=== PATIENT | female | born 1950 | race Caucasian/White ===

== ENCOUNTER → 2019-04-28 | Outpatient (CLI) | payer OTHER | LOC: CAT 08:08 | DX: Z13.6 Encounter for screening for cardiovascular disorders (principal); I25.10 Atherosclerotic heart disease of native coronary artery without angina pectoris; E78.00 Pure hypercholesterolemia, unspecified ==

== ENCOUNTER → 2019-05-25 | Outpatient (CLI) | payer OTHER | LOC: SJCVC 12:45 | DX: I10 Essential (primary) hypertension (principal); R93.1 Abnormal findings on diagnostic imaging of heart and coronary circulation; E78.5 Hyperlipidemia, unspecified; I65.23 Occlusion and stenosis of bilateral carotid arteries; Z96.659 Presence of unspecified artificial knee joint; Z79.899 Other long term (current) drug therapy; Z82.49 Family history of ischemic heart disease and other diseases of the circulatory system ==

== ENCOUNTER → 2019-06-14 | Outpatient (CLI) | payer OTHER | LOC: SJCVCIMAG 11:01 | DX: I65.23 Occlusion and stenosis of bilateral carotid arteries (principal); I08.3 Combined rheumatic disorders of mitral, aortic and tricuspid valves; R00.0 Tachycardia, unspecified; E78.5 Hyperlipidemia, unspecified; I10 Essential (primary) hypertension; Z82.49 Family history of ischemic heart disease and other diseases of the circulatory system; Z79.899 Other long term (current) drug therapy ==

== ENCOUNTER → 2019-11-29 | Outpatient (CLI) | payer OTHER | LOC: SJCVC 11:57 | PROVIDERS: ATTEND Internal Medicine | DX: I10 Essential (primary) hypertension (principal); R93.1 Abnormal findings on diagnostic imaging of heart and coronary circulation; E78.5 Hyperlipidemia, unspecified; I65.23 Occlusion and stenosis of bilateral carotid arteries; Z82.49 Family history of ischemic heart disease and other diseases of the circulatory system; Z79.82 Long term (current) use of aspirin; Z79.899 Other long term (current) drug therapy ==

== ENCOUNTER → 2020-05-31 | Outpatient (CLI) | payer OTHER | LOC: SJCVCIMAG 09:42 | PROVIDERS: ATTEND Internal Medicine | DX: I65.23 Occlusion and stenosis of bilateral carotid arteries (principal); R93.1 Abnormal findings on diagnostic imaging of heart and coronary circulation; E78.5 Hyperlipidemia, unspecified; I10 Essential (primary) hypertension; Z82.49 Family history of ischemic heart disease and other diseases of the circulatory system; Z88.2 Allergy status to sulfonamides; Z88.1 Allergy status to other antibiotic agents; Z79.82 Long term (current) use of aspirin; Z79.899 Other long term (current) drug therapy; Z72.89 Other problems related to lifestyle ==

== ENCOUNTER → 2020-10-25 | Outpatient (CLI) | payer OTHER | LOC: CAT 09:35 | PROVIDERS: ATTEND Family Medicine | DX: K57.30 Diverticulosis of large intestine without perforation or abscess without bleeding (principal); M47.816 Spondylosis without myelopathy or radiculopathy, lumbar region; N30.00 Acute cystitis without hematuria ==

== ENCOUNTER → 2020-11-28 | Outpatient (CLI) | payer OTHER | LOC: SJCVC 09:50 | PROVIDERS: ATTEND Internal Medicine | DX: R93.1 Abnormal findings on diagnostic imaging of heart and coronary circulation (principal); E78.5 Hyperlipidemia, unspecified; I10 Essential (primary) hypertension; I65.23 Occlusion and stenosis of bilateral carotid arteries; Z88.2 Allergy status to sulfonamides; Z88.8 Allergy status to other drugs, medicaments and biological substances; Z79.82 Long term (current) use of aspirin; Z79.899 Other long term (current) drug therapy; Z82.49 Family history of ischemic heart disease and other diseases of the circulatory system ==

== ENCOUNTER 2021-02-26 09:38 | Emergency (ER) | payer OTHER ==
[~2021-02-26] VITALS: Ht 162.6 cm; Wt 132.4 kg
[2021-02-26 10:39] LABS: ABSOLUTE NEUTROPHILS 7.7 thou/uL (1.4-8.2); EOSINOPHILS 3.3 % (0.0-3.0); HEMATOCRIT 36.1 % (37.0-47.0); HEMOGLOBIN 11.7 gm/dL (12.0-15.0); LYMPHOCYTES 9.1 % (24.0-44.0); MCH 27.4 pg (26.0-34.0); MCHC 32.6 g/dL (28.0-37.0); MCV 84.1 fL (80.0-100.0); MONOCYTES 8.2 % (1.0-8.0); PLATELET COUNT 496 thou/uL (150-400); POLYS 78.4 % (36.0-66.0); RBC 4.29 mil/uL (4.20-5.00); RDW 14.1 % (10.5-14.5); WBC 9.8 thou/uL (4.0-11.0)
[2021-02-26 10:50] LABS: CALCIUM 8.6 mg/dL (8.5-10.1); CREATININE 0.9 mg/dL (0.6-1.0)
[2021-02-26 10:57] LABS: ALBUMIN 2.8 g/dL (3.4-5.0); DIRECT BILIRUBIN 0.1 mg/dL (<0.1-0.2); TOTAL BILIRUBIN 0.5 mg/dL (0.2-1.0); TOTAL PROTEIN 6.8 g/dL (6.4-8.2)
[2021-02-26] MEDS ORDERED: DOXYCYCLINE 10100 MG PO (11:12)
[2021-02-26 11:15] VITALS: BP 125/72
== END 2021-02-26 11:15 | disposition home or self-care (01) ==
LOC: ER 09:38
PROVIDERS: Student in an Organized Health Care Education/Training Program
DX: R06.02 Shortness of breath (principal); Z20.822 Contact with and (suspected) exposure to COVID-19; Z88.2 Allergy status to sulfonamides

== ENCOUNTER 2021-03-03 14:37 | Inpatient (IN) | payer OTHER ==
[~2021-03-03] VITALS: Ht 162.6 cm; Wt 134.3 kg
[~2021-03-03 14:37] MED LIST: DOXYCYCLINE 10100 MG PO
[2021-03-03 14:38] VITALS: BP 160/74
[2021-03-03] MEDS ORDERED: OMEPRAZOLE 20 M20 M1 PO (14:51)
[2021-03-03] MEDS ORDERED: HYDROCHLOROTHIA25 M1 PO (14:51)
[2021-03-03] MEDS ORDERED: AMLODIPINE BESY10 MG PO (14:51)
[2021-03-03] MEDS ORDERED: METOPROLOL SUC200 MG PO (14:51)
[2021-03-03] MEDS ORDERED: OLMESARTAN MEDO40 MG PO (14:52)
[2021-03-03] MEDS ORDERED: POTASSIUM CHLO20 ME1 PO (14:52)
[2021-03-03] MEDS ORDERED: ROSUVASTATIN CA40 MG PO (14:52)
[2021-03-03 15:03] LABS: ABSOLUTE NEUTROPHILS 8.4 thou/uL (1.4-8.2); BASOPHILS 1.1 % (0.0-2.0); EOSINOPHILS 2.6 % (0.0-3.0); HEMATOCRIT 36.2 % (37.0-47.0); HEMOGLOBIN 11.8 gm/dL (12.0-15.0); LYMPHOCYTES 9.1 % (24.0-44.0); MCH 26.9 pg (26.0-34.0); MCHC 32.6 g/dL (28.0-37.0); MCV 82.4 fL (80.0-100.0); MONOCYTES 8.1 % (1.0-8.0); PLATELET COUNT 569 thou/uL (150-400); POLYS 79.1 % (36.0-66.0); RBC 4.39 mil/uL (4.20-5.00); RDW 13.8 % (10.5-14.5); WBC 10.6 thou/uL (4.0-11.0)
[2021-03-03 15:08] LABS: CALCIUM 8.4 mg/dL (8.5-10.1); CREATININE 0.9 mg/dL (0.6-1.0); POTASSIUM 3.4 mmol/L (3.5-5.1)
[2021-03-03 15:18] LABS: ALBUMIN 2.8 g/dL (3.4-5.0); TOTAL BILIRUBIN 0.4 mg/dL (0.2-1.0); TOTAL PROTEIN 6.9 g/dL (6.4-8.2)
[2021-03-03 16:20] LABS: URINE BILIRUBIN 1+ (Negative); URINE BLOOD TRACE (Negative); URINE CLARITY CLEAR; URINE COLOR YELLOW; URINE GLUCOSE-RANDOM* NEGATIVE (Negative); URINE KETONES NEGATIVE (Negative); URINE LEUKOCYTES-REFLEX TRACE (Negative); URINE NITRITE-REFLEX NEGATIVE (Negative); URINE PROTEIN (DIPSTICK) NEGATIVE (Negative); URINE SPECIFIC GRAVITY >= 1.030 (1.005-1.035)
[2021-03-03 16:22] LABS: ICTOTEST (BILI CONFIRMATORY) Negative (Negative)
[2021-03-03 18:43] LABS: INR 1.01
[2021-03-03 18:58] VITALS: BP 143/77
[2021-03-03 19:15] VITALS: BP 143/77
[2021-03-03 19:59] VITALS: BP 127/74
[2021-03-04 03:48] VITALS: BP 100/55
--- NOTE | 2021-03-04 08:14 | EKG ---
[address] [address] ELECTROCARDIOGRAM REPORT Name: SUNSHINE SHAW Room #: 437-P ADM IN M.R.#: [id number] Admission: 03/03/21 Attend Phys: Gareth Thibodeaux MD Discharge: Date of : 48 Report #: [id number] [facility] ED Test Date: 2021-03-03 Test Time: 14:44:46 Pat Name: SUNSHINE SHAW Department: Room: 437 Gender: F Analysis Manager: KAT : 1950 Requested By: Hong Chacon Order Number: [id number] MD: Goldy Vegas Measurements Intervals [place] Rate: 81 P: -4 IL: 154 QRS: 26 QRSD: 103 T: 24 QT: 390 QTc: 453 Interpretive Statements Sinus rhythm No previous ECG available for comparison Electronically Signed On 03-04-2021 8:14:13 CLAIM TRAINEE by Goldy Vegas [email or web address] <ELECTRONICALLY SIGNED> By: Goldy Vegas MD, [facility] 03/04/21 0814 1444 1444 Goldy Vegas MD, FACC /EPI
[2021-03-04 08:30] VITALS: BP 118/60
--- NOTE | 2021-03-04 10:54 | NUR ---
ASSUMED PT CARE THIS AM. PT IS ALERT & ORIENTED X4. PT IS ON TELE MONITOR ON. PT IS UP AD [place]. PT HAS IV SITE ON RAC SALINE LOCKED. PT IS ON ROOM AIR. PT C/O OF NAUSEA AND GIVEN NAUSEA MEDICATION PER PT ORDERED. PT WILL HAVE THORACENTESIS TOMORROW. PT SON WAS AT THE BEDSIDE. WILL CONTINUE TO MONITOR PT. FOLLOW POC.
[2021-03-04 19:14] VITALS: BP 91/60
--- NOTE | 2021-03-05 02:59 | NUR ---
PT AMBULATING TO BATHROOM INDEPENDENTLY AND IS TOLERATING WELL. ZOFRAN PROVIDING NAUSEA RELIEF. LORTAB PAIN RELIEF. BENADRYL GIVEN FOR SLEEP. RESTING COMFORTABLY. NO NEEDS VOICED. CALL LIGHT WITHIN REACH. FREQUENT OBSERVATION.
[2021-03-05 04:39] VITALS: BP 125/66
[2021-03-05 07:45] VITALS: BP 124/62
--- NOTE | 2021-03-05 09:45 | NUR ---
Unable to visit with her, related to she out of room for test/procedure. Will cont following as needed.
[2021-03-05 12:15] LABS: CLARITY HAZY; COLOR YELLOW; TOTAL VOLUME 55 mL
[2021-03-05 12:16] LABS: SOURCE ABDOMINAL
[2021-03-05 13:11] LABS: BF NUCLEATED CELLS 1605 /mm3; BF RBC 1758 /mm3
[2021-03-05 14:58] LABS: BF NEUTROPHILS 0 %
[2021-03-05 14:59] LABS: BF MACROPHAGE 34 %
[2021-03-05 15:47] VITALS: BP 124/62
--- NOTE | 2021-03-05 16:20 | NUR ---
PT ASSESSED AT START OF SHIFT. DR. SMITH IN THIS AM. HAS CT CHEST AND PARACENTESIS THIS AM W/ LARGE AMT FLUID TAKEN OFF. PT FEELING MUCH BETTER AND ABLE TO TAKE FOOD AND DRINK W/O NAUSEA. GI CONSULT AND PT TO SCHEDULE OUTPT COLOOSCOPY. PT DISCHARGING AT THIS TIME AND WILL F/U W/ DR. ANGEL.
--- NOTE | 2021-03-07 08:42 | HC ---
[facility] [place] [address] [place] [address] CONSULTATION Name: SUNSHINE SHAW Room #: 437-P [facility] IN M.R.#: [id number] Admission: 03/03/21 Attend Phys: Gareth Thibodeaux MD Discharge: 03/05/21 Date of : 48 Report #: [id number] THIS REPORT FOR: cc: Gareth Thibodeaux MD, Neal A. MD McKittrick, Richard James MD ~ cc: Gareth Thibodeaux MD, Ting Erwin M.D., PhD HISTORY OF PRESENT ILLNESS: The patient is a 71-year-old female with about a 3-week history of shortness of breath. She developed some wheezing. Also, on further questioning, she had some postmenopausal vaginal bleeding for about 2 or 3 months. She had seen Dr. Erwin over the [facility], who did an ultrasound that raised a question of increased uterine lining about 1.2 cm and they were suggesting D and C or hysteroscopy. I believe this was being set up. Here after admission, the patient was evaluated with a CAT scan that unfortunately shows large volume ascites with diffuse peritoneal nodularity, suspicious for peritoneal carcinomatosis. Also, new abnormal thickened endometrium, measuring up to 2.8 cm, suspicious for endometrial carcinoma. A low attenuation mass within the posterior uterus may represent a leiomyoma. The patient denies any headache, any weight change any fevers, any chills. Has had vaginal bleeding for several months. Last colonoscopy was about 4 or 5 years ago. No skin rashes, may be some slight ankle swelling, some slight decreased appetite, may be some slight nausea and vomiting. PAST MEDICAL HISTORY: Notable for history of hypertension and hyperlipidemia. FAMILY HISTORY: Mother had hypertension. Father had a stroke. Sound like there was 4 girls total, 3 sisters, one from Cerebral palsy, one may have had lung cancer. She has 4 sons and 11 grandchildren. SOCIAL HISTORY: She is . Her about 3 years ago, I think from lung cancer, but I am not sure. She works in [employer] at [employer] Before that, she worked in sales. I think she said for [employer]. MEDICATIONS: At this time in the hospital include hydrocodone p.r.n., ceftriaxone 1 gram IV q. 24 hours, Benadryl p.r.n., pantoprazole 40 daily, ondansetron p.r.n. Note that her antihypertensives, which I believe included amlodipine and hydrochlorothiazide had been held. LABORATORY DATA: So far, is notable for sodium 129, hemoglobin 11.8 with normal indices, normal differential. PHYSICAL EXAMINATION: [facility] [address] [place] [address] CONSULTATION Name: SUNSHINE SHAW Room #: 437-P [facility] IN M.R.#: [id number] Admission: 03/03/21 Attend Phys: Gareth Thibodeaux MD Discharge: 03/05/21 Date of : 48 Report #: [id number] VITAL SIGNS: Height is 5 feet 4 inches or 162 cm; weight is 296 pounds or 134.43 kg, blood pressure is 125/66, O2 sat 92%, respirations 18, and afebrile at 97.6. MOOD: She is alert and pleasant, slightly anxious. NEUROLOGIC: Speech and thought pattern normal. HEENT: Face is symmetrical, moving arms and legs appropriately. LUNGS: Clear anteriorly. HEART: Regular rate. ABDOMEN: Quite distended in addition to underlying obesity. NECK: No enlarged lymph nodes in the supraclavicular, cervical, inguinal region. EXTREMITIES: There may be some trace edema at the ankles. ASSESSMENT AND PLAN: 1. Ascites, peritoneal nodularity and uterine lining thickening, all worrisome for endometrial cancer. Discussed with patient. I agree with paracentesis. If malignancy is found, will need to followup with [facility]. Since the patient is already established with [facility] at , may consider having her see either Dr. Konstantin Kelly or Luz Haley [facility] at . In preparation, will have the patient see GI here for potential colonoscopy, which would be needed before their evaluation. We will also check CEA CA-125. We will also order a CT chest. The patient was given my card. We will call her when we get the pathology results and keep her assessment moving along. Unfortunately, if this is malignancy, this would likely represents stage IV, but we will await the final determination and there can be significant benefit from surgery and chemotherapy. 2. Ascites with volume issues. Awaiting benefit from paracentesis. 3. Hypertension. Meds per others. 4. Hyperlipidemia. Meds per others. 5. Additional family history. We will wait to see if tumor is found and may need to consider testing on the tumor such as MSI or may consider BRCA if this is an ovarian cancer. We will follow with you. <ELECTRONICALLY SIGNED> By: Hugo Ch MD 03/07/21 0842 0718 0823 Hugo Ch MD /nt
[2021-03-07 14:08] LABS: CEA 0.9 ng/mL (0.0-4.7)
--- NOTE | 2021-03-08 15:07 | PATH ---
[facility] [place] [address] PATHOLOGY RPT PROCEDURE Name: SUNSHINE SHAW Room #: 437-P DIS IN M.R.#: [id number] Admission: 03/03/21 Date of : 48 Discharge: 03/05/21 Report #: [id number] Path Case #: [id number] Note [facility] Accession Number: [id number] TESTS RESULT FLAG UNITS REF RANGE LAB Clinician Provided Cytology Information No. of containers..01 Other (Miscellaneous) Source: [A] 01 PERITONEAL FLUID DIAGNOSIS: [A] 02 Abdominal fluid: - Positive for malignant cells. - Metastatic adenocarcinoma. (BENI:rosalei; 03/07/2021) COMMENT: Immunohistochemical stains are performed on block A1 at [facility] with appropriate control and show the following results: WT-1: Negative in tumor cells ER: Negative in tumor cells Calretinin: Negative in tumor cells P53: Negative in tumor cells CK7: Positive in tumor cells CK20: Negative in tumor cells CDX2: Negative in tumor cells GIA-3: Rare cells, positive The findings confirm the presence of a metastatic adenocarcinoma in the peritoneal fluid. Possible sites include ovarian, gynecological tract or upper gastrointestinal tract. Recommend clinical correlation. This case has been co-reviewed with Dr. Cristal Curtis who agrees on 03/08/2021. Dr. Gareth Thibodeaux's office notified by Dr. Barraza on 03/08/2021 at 1040 am. (ANK:[email or web address]; 03/08/2021) Signed out by: 02 Nikki Barraza MD, Pathologist NPI- [id number] Performed by: Carleen Leigh, Dog Breeder ([facility]) Gross description: 01 10ML, CLOUDY, YELLOW /LCS 03/07/2021 1221 Local FLAG LEGEND: L-Low Normal,H-High Normal,LL-Alert Low,HH-Alert High <-Panic Low,>-Panic High,A-Abnormal,AA-Critical Abnormal Performed at: [place] [address] PATHOLOGY RPT PROCEDURE Name: SUNSHINE SHAW Room #: 437-P DIS IN M.R.#: [id number] Admission: 03/03/21 Date of : 48 Discharge: 03/05/21 Report #: [id number] Path Case #: [id number] 01 [facility] [address] [place] [address] Edgar Anaya MD, 02 [facility] [address] Vandana Nicholas MD, Specimen Comment: A courtesy copy of this report has been sent to [phone] Specimen Comment: Report sent to Performed at: 01 [facility] [address], [place], [place] [id number] MD Edgar Anaya MD Phone: [phone]
[2021-03-08 16:06] LABS: BODY FLUID GLUCOSE 83 mg/dL (()); BODY FLUID LDH 683 IU/L (()); BODY FLUID PROTEIN 4.7 g/dL (())
[2021-03-12 17:06] LABS: SOURCE ABDOMINAL
== END 2021-03-05 16:46 | disposition home or self-care (01) | DRG 843 ==
LOC: ER 14:37 → EROBS 18:20 → 4S 18:20
PROVIDERS: Emergency Medicine; Internal Medicine Hematology & Oncology; ADMIT Family Medicine; ATTEND Family Medicine
PROC: 0W9G30Z Drainage of Peritoneal Cavity with Drainage Device, Percutaneous Approach (ICD-10-PCS; principal; 2021-03-05)
DX: C79.89 Secondary malignant neoplasm of other specified sites (principal); E43 Unspecified severe protein-calorie malnutrition; J90 Pleural effusion, not elsewhere classified; R18.0 Malignant ascites; N85.00 Endometrial hyperplasia, unspecified; K66.9 Disorder of peritoneum, unspecified; Z20.822 Contact with and (suspected) exposure to COVID-19; Z88.2 Allergy status to sulfonamides; Z88.8 Allergy status to other drugs, medicaments and biological substances; K21.9 Gastro-esophageal reflux disease without esophagitis; I10 Essential (primary) hypertension; E78.5 Hyperlipidemia, unspecified; N95.0 Postmenopausal bleeding
CPT/HCPCS: 10100